=== PATIENT | female | born 1990 | race Caucasian/White ===

== ENCOUNTER 2023-06-30 16:33 | Emergency (ER) | payer SELFPAY ==
[~2023-06-30] VITALS: Ht 154.9 cm; Wt 65.0 kg
[2023-06-30] MEDS ORDERED: ondansetron HCL 4 MG/2 ML VIAL IV ONE (22:15)
[2023-06-30 22:29] LABS: BASOPHILS 0.6 % (0-2); EOSINOPHILS 0.5 % (0-6); HEMATOCRIT 36.6 % (35.0-50.0); LYMPHOCYTES 27.8 % (24-44); MCH 26.6 (27-36); MCHC 32.9 g/dl (30-36); MCV 80.8 fl (81-99); MONOCYTES 5.7 % (0-12); NEUTROPHILS 65.4 % (39-80); PLATELET COUNT 265 K/uL (140-440); RBC 4.53 M/ul (4.3-5.7); RDW 13.8 (10.5-15.0)
[2023-06-30 22:49] LABS: ALBUMIN 3.9 g/dL (3.4-5.0); ALBUMIN/GLOBULIN RATIO 1.15 (1.1-2.4); ANION GAP 16.5 (7-21); BILIRUBIN, TOTAL 0.4 ng/dL (0.2-1.0); BUN/CREATININE RATIO 15.62 (6.0-28.6); CALCIUM 8.9 mg/dL (8.5-10.1); CREATININE, SERUM 0.64 mg/dL (0.55-1.02); POTASSIUM 3.5 mmol/L (3.5-5.1); PROTEIN, TOTAL 7.3 g/dL (6.4-8.2)
[2023-06-30] MEDS ORDERED: MAGNESIUM CITRATE 300 ML BTL PO ONE (23:45)
[2023-06-30] MEDS ORDERED: LACTULOSE10 GM/15 M PO (23:45)
[2023-06-30] MEDS ORDERED: ANUSOL-HC30 GM PR (23:45)
[2023-07-01] MEDS ORDERED: LIDOCAINE 2% VISCOUS 6 ML SYR ONE (00:26)
[2023-07-01] MEDS ORDERED: LIDOCAINE 2% VISCOUS 6 ML SYR TOP ONE (00:30)
[2023-07-01] MEDS ORDERED: LIDOCAINE 2% (VISCOUS) HCL 15 ML UDC TOP ONE ×2 (00:30)
[2023-07-01 00:31] VITALS: BP 109/68
== END 2023-07-01 00:35 | disposition home or self-care (01) ==
LOC: ED 16:33
PROVIDERS: Family Medicine
DX: K59.00 Constipation, unspecified (principal)
CPT/HCPCS: 36415; 74177; 80053; 84703; 85025; 99284-25; Q9967